=== PATIENT | female | born 1975 ===

== ENCOUNTER 2019-07-01 11:23 | Emergency (ER) | payer OTHER ==
[~2019-07-01] VITALS: Ht 170.2 cm; Wt 95.5 kg
[2019-07-01 11:38] VITALS: BP 158/118
[2019-07-01] MEDS ORDERED: QUET25TA PO (11:46)
[2019-07-01] MEDS ORDERED: SERT100T12 PO (11:46)
== END 2019-07-01 13:15 | disposition left against medical advice (07) ==
LOC: EMS 11:23
DX: M54.5 Low back pain (principal); F32.9 Major depressive disorder, single episode, unspecified; Z87.891 Personal history of nicotine dependence; Z53.21 Procedure and treatment not carried out due to patient leaving prior to being seen by health care provider